=== PATIENT | female | born 1960 | race Caucasian/White ===

== ENCOUNTER → 2019-03-02 10:27 | Outpatient (BNVA) | payer MEDICARE, MEDICAID, SELFPAY | PROVIDERS: Family Provider Internal Medicine; PCP Internal Medicine; Visit Provider Nurse Practitioner Psychiatric/Mental Health | DX: F33.2 Major depressive disorder, recurrent severe without psychotic features (principal); F43.12 Post-traumatic stress disorder, chronic; F41.1 Generalized anxiety disorder; G47.33 Obstructive sleep apnea (adult) (pediatric); F17.210 Nicotine dependence, cigarettes, uncomplicated | CPT/HCPCS: 99214 ==

== ENCOUNTER → 2019-03-07 07:45 | Outpatient (BNVA) | payer MEDICARE, MEDICAID, SELFPAY | PROVIDERS: Family Provider Internal Medicine; PCP Internal Medicine; Visit Provider Social Worker | DX: F43.12 Post-traumatic stress disorder, chronic (principal); F33.1 Major depressive disorder, recurrent, moderate; F41.1 Generalized anxiety disorder | CPT/HCPCS: 90834 ==

== ENCOUNTER 2019-04-05 09:53 | Outpatient (CLI) | payer MEDICARE, MEDICAID, SELFPAY ==
--- NOTE | 2019-04-05 09:56 | MM_ITS ---
WS: [id number] BILATERAL SCREENING DIGITAL MAMMOGRAM WITH CAD HISTORY: SCREENING COMPARISON: 02/05/2018, 12/19/2016, 05/26/2012. Bilateral CC and MLO views submitted. Computer aided detection analyzed. Breast composition: There are scattered areas of fibroglandular density. No suspicious masses, microc alcifications or architectural distortion. Long-term stability of a mass measuring 8 mm in the anteri or LEFT breast. There are a few benign scattered calcifications. MM/[place] [id number] IMPRESSION: BI-RADS: 2-Benign FOLLOW UP: 1 Year Follow-up
== END 2019-04-05 09:54 | disposition home or self-care (01) ==
LOC: RADSHAW 09:54
PROVIDERS: Family Provider Internal Medicine; PCP Internal Medicine; Visit Provider Internal Medicine
DX: Z12.31 Encounter for screening mammogram for malignant neoplasm of breast (principal)
CPT/HCPCS: 77067

== ENCOUNTER → 2019-05-06 07:55 | Outpatient (BNVA) | payer MEDICARE, MEDICAID, SELFPAY | PROVIDERS: Family Provider Internal Medicine; PCP Internal Medicine; Visit Provider Nurse Practitioner Psychiatric/Mental Health | DX: F33.2 Major depressive disorder, recurrent severe without psychotic features (principal); F43.12 Post-traumatic stress disorder, chronic; F41.1 Generalized anxiety disorder; G47.33 Obstructive sleep apnea (adult) (pediatric); F17.210 Nicotine dependence, cigarettes, uncomplicated | CPT/HCPCS: 99214 ==

== ENCOUNTER → 2019-05-10 09:01 | Outpatient (BNVA) | payer MEDICARE, MEDICAID, SELFPAY | PROVIDERS: Family Provider Internal Medicine; PCP Internal Medicine; Visit Provider Social Worker | DX: F43.12 Post-traumatic stress disorder, chronic (principal); F41.1 Generalized anxiety disorder; F33.2 Major depressive disorder, recurrent severe without psychotic features | CPT/HCPCS: 90834 ==

== ENCOUNTER → 2019-06-02 07:37 | Outpatient (BNVA) | payer MEDICARE, MEDICAID, SELFPAY | PROVIDERS: Family Provider Internal Medicine; PCP Internal Medicine; Visit Provider Nurse Practitioner Psychiatric/Mental Health | DX: F33.2 Major depressive disorder, recurrent severe without psychotic features (principal); F43.12 Post-traumatic stress disorder, chronic; F41.1 Generalized anxiety disorder; G47.33 Obstructive sleep apnea (adult) (pediatric); F17.210 Nicotine dependence, cigarettes, uncomplicated | CPT/HCPCS: 99214 ==

== ENCOUNTER → 2019-06-09 08:16 | Outpatient (BNVA) | payer MEDICARE, MEDICAID, SELFPAY | PROVIDERS: Family Provider Internal Medicine; PCP Internal Medicine; Visit Provider Social Worker | DX: F33.2 Major depressive disorder, recurrent severe without psychotic features (principal); F43.12 Post-traumatic stress disorder, chronic | CPT/HCPCS: 90834 ==

== ENCOUNTER → 2019-08-05 07:46 | Outpatient (BNVA) | payer MEDICARE, MEDICAID, SELFPAY | PROVIDERS: Family Provider Internal Medicine; PCP Internal Medicine; Visit Provider Nurse Practitioner Psychiatric/Mental Health | DX: F33.2 Major depressive disorder, recurrent severe without psychotic features (principal); F43.12 Post-traumatic stress disorder, chronic; F41.1 Generalized anxiety disorder; F17.210 Nicotine dependence, cigarettes, uncomplicated; G47.33 Obstructive sleep apnea (adult) (pediatric) | CPT/HCPCS: 99214 ==

== ENCOUNTER → 2019-09-09 07:25 | Outpatient (BNVA) | payer MEDICARE, MEDICAID, SELFPAY | PROVIDERS: Family Provider Internal Medicine; PCP Internal Medicine; Visit Provider Nurse Practitioner Psychiatric/Mental Health | DX: F33.2 Major depressive disorder, recurrent severe without psychotic features (principal); F43.12 Post-traumatic stress disorder, chronic; F41.1 Generalized anxiety disorder; G47.33 Obstructive sleep apnea (adult) (pediatric); F17.210 Nicotine dependence, cigarettes, uncomplicated | CPT/HCPCS: 99214 ==

== ENCOUNTER → 2019-09-13 08:45 | Outpatient (BNVA) | payer OTHER, SELFPAY | PROVIDERS: Family Provider Internal Medicine; PCP Internal Medicine; Visit Provider Psychiatry & Neurology Neurology | DX: F33.2 Major depressive disorder, recurrent severe without psychotic features (principal); F43.10 Post-traumatic stress disorder, unspecified; F41.1 Generalized anxiety disorder | CPT/HCPCS: 80061; 83036 ==

== ENCOUNTER 2019-09-22 17:34 | Emergency (ER) | payer MEDICARE, MEDICAID, SELFPAY ==
[2019-09-14 11:43] VITALS: BP 132/85; BMI 25.6
[2019-09-22 17:34] VITALS: BP 151/86; PULSE 81; RESP 16; TEMP 36.8; O2SAT 95; BMI 25.5
--- NOTE | 2019-09-22 17:50 | XRR_ITS ---
PROCEDURE INFORMATION: Exam: XR Chest, 1 View Exam date and time: 09/22/2019 6:30 PM Age: 59 years old Clinical indication: Shortness of breath and other: Vertigo; Patient HX: C/O shortness of breath x 1 day, dizziness, vertigo TECHNIQUE: Imaging protocol: XR of the chest Views: 1 view. COMPARISON: CR Chest 2 views* [id number] 09/01/2017 10:55 PM FINDINGS: Lungs: No consolidation. Pleural space: No pleural effusion. No pneumothorax. Heart/Mediastinum: No cardiomegaly. Bones/joints: No acute fracture. XR/XR chest 1V portable [id number] IMPRESSION: No acute findings.
--- NOTE | 2019-09-22 17:51 | ECG_ITS ---
[facility] Test Date: 2019-09-22 Pat Name: Danielle Galo Department: Room: Gender: Female Income Tax Manager: : 1960 Requested By: Mary Ingram I Order Number: [id number] Veronique MD: Emerald Dale M.D. Measurements Intervals [place] Rate: 76 P: 74 TN: 188 QRS: -9 QRSD: 109 T: 43 QT: 391 QTc: 440 Interpretive Statements SINUS RHYTHM POSSIBLE LEFT ATRIAL ENLARGEMENT [-0.1mV P WAVE IN V1/V2] LOW QRS VOLTAGE IN PRECORDIAL LEADS INCOMPLETE RIGHT BUNDLE BRANCH BLOCK POSSIBLE INFERIOR MYOCARDIAL INFARCTION , PROBABLY OLD Compared to ECG 01/04/2019 15:47:46 Myocardial infarct finding now present Sinus arrhythmia no longer present Electronically Signed On 09-22-2019 20:10:42 CDT by Emerald Dale M.D. [id number]
[2019-09-22 18:00] VITALS: BP 120/71; BP 137/85; BP 147/83; PULSE 76; PULSE 88; PULSE 92
--- NOTE | 2019-09-22 18:00 | W.ED.DIZZY ---
HPI - Dizziness General: Chief Complaint: Dizziness Stated Complaint: DIZZINESS Time Seen by Provider: 09/22/19 17:39 Source: patient and EMS Mode of arrival: EMS History of Present Illness: HPI Narrative: Patient has a history of vertigo but states that today her symptoms feel different than usual. She has severe vertigo with the room spinning worse when she turns her head and has fallen down several times due to the vertigo. She has nausea but no vomiting and feels quite unwell. No fever, no head injury, no recent ear infection. MD elicited complaint: dizziness, vertigo and disequilibrium Pertinent past history: inner ear problems Onset (ago): hour(s) Timing: sudden onset Severity: severe Description: room spinning , off-balance and difficulty walking Context: change in body position and anxiety History of similar symptoms: Yes (But she says it feels different than her usual) Exacerbating factors: movement/ambulation and change in body position Relieving factors: nothing Associated symptoms: Reports malaise and nausea; Denies abnormal vaginal bleeding, change in hearing, chest pain, chills, cough, diaphoresis, ear discharge, ear pressure, fevers/chills, headache(s), nasal congestion, palpitations, rash, short of breath, syncope, tinnitus, vomiting or weakness Associated neuro symptoms: Deny confusion, difficulty speaking, dysphagia, diplopia, extremity weakness, facial numbness, facial weakness, gait changes, numbness in extremities or visual changes Review of Systems General: Reports: 10 or more systems reviewed and unremarkable except in HPI and below Const: Reports: malaise; Denies: chills or diaphoresis Eyes: Denies: change in vision or blurry vision ENMT: Denies: ear discharge, change in hearing, tinnitus or nasal congestion Card: Denies: chest pain, palpitations or syncope Resp: Denies: dyspnea, productive cough or non-productive cough GI: Reports: nausea; Denies: vomiting or dysphagia : Denies: flank pain, difficulty voiding, dysuria, urinary frequency, urinary urgency or urinary hesitancy Musc: Denies: neck pain, back pain or extremity swelling Skin/Breast: Denies: rash, pruritus or erythema Neuro: Reports: vertigo; Denies: headache(s), numbness in extremities or confusion Endo: Denies: polyuria, polydipsia or tired all the time PFS ED PFSH: Medical History (Reviewed 09/22/19 @ 22:29 by Mary Ingram [place], [facility] [place] Chronic post-traumatic stress disorder Generalized anxiety disorder Intervertebral cervical disc disorder with myelopathy, cervical region Major depressive disorder, recurrent severe without psychotic features Nicotine dependence, cigarettes, uncomplicated Obstructive sleep apnea Surgical History (Reviewed 09/22/19 @ 22:29 by Mary Ingram MD, [facility] [place] H/O carpal tunnel repair Open release of the median nerve at the right wrist, reexploration; 11/29/2018; [facility] Status post decompression of ulnar nerve at elbow Open release of the ulnar nerve at the right elbow; 11/29/2018; [facility] Family History (Reviewed 09/22/19 @ 22:29 by Mary Ingram MD, [facility] [place] Other Adopted Unknown family medical history Social History (Reviewed 09/22/19 @ 22:29 by Mary Ingram MD, [facility] [place] Smoking and tobacco status: current every day smoker cigarettes Years cigarettes smoked: 45 Quit status (tobacco): has tried quititng Number of times tried to quit tobacco: 2 Second hand smoke exposure: No Smoking risk assessment/counseling performed?: Yes Alcohol intake: former Year of sobriety/quit date alcohol: 12.2 Desire information about alcohol rehabilitation?: No Counseling given: No Desire information about substance/drug rehabilitation?: No Adopted: Yes Caregiver/support person: No Lives independently: Yes Household members: none Housing: Apartment Marital status: Number of children: 2 Number of grandchildren: 1 Highest education level completed: Associate Degree: Occupational, Technical, Vocational Program Education level details: Licensed practical nurse service: No Current occupational status: disabled Current occupational exposures/hazards: No Pets and animals: No History of recent travel: No Leisure activites: art, music and reading Sexually active: No Current gender identity: Female Cheryl/Adventist: Nondenominational Special cheryl needs: No Agree to transfusion: Yes Financial difficulty paying for basics: Not Very Hard Female Reproductive History: Para: 2 Spontaneous abortions: Yes (single and quadruplets) Physical Exam Const: COMMON NORMALS: no acute distress, average body habitus, patient oriented x3, no limitations, healthy appearing, alert and well nourished HENMT: COMMON NORMALS: normocephalic, atraumatic and moist oral mucous membranes HEAD & SCALP: normocephalic and atraumatic Eye: COMMON NORMALS: Equal, round and reactive pupils present, EOMs intact bilaterally, conjunctivae normal and no scleral icterus CONJUNCTIVA: Yes conjunctivae normal PUPIL: Yes Equal, round and reactive pupils present Neck/C-Spine: COMMON NORMALS: full ROM, supple, no meningeal signs, no JVD and No carotid bruits Resp: COMMON NORMALS: normal respiratory effort, No retractions, No use of accessory muscles, clear to auscultation bilaterally and percussion normal AUSCULTATION: clear to auscultation bilaterally PERCUSSION: percussion normal Cardio: COMMON NORMALS: no JVD, regular rate, regular rhythm, S1 normal heart sound present, S2 normal heart sound present, No gallops present (Cardio), No clicks present (Cardio), No murmurs present (Cardio), No rub (Cardio) and Peripheral pulses 2+ throughout RATE: regular rate RHYTHM: regular rhythm HEART SOUNDS: S1 normal heart sound present and S2 normal heart sound present PERIPHERAL PULSES: Peripheral pulses 2+ throughout GI: COMMON NORMALS: Normal to inspection, nondistended, normoactive bowel sounds present, Soft to palpation, non-tender, No hepatosplenomegaly present, no masses and no bruits PALPATION: Yes Soft to palpation and Yes No hepatosplenomegaly present Extremity: COMMON NORMALS: normal to inspection, full ROM, capillary refill normal, no calf tenderness and no pedal edema Neuro: COMMON NORMALS: patient oriented x3 SENSORIUM/ORIENTATION: Yes alert MENINGEAL SIGNS: Yes no meningeal signs OTHER: No nystagmus observed however the patient was symptomatic when she looked laterally with either eye. Skin: COMMON NORMALS: no rashes or lesions noted, no wounds, turgor normal, no jaundice, no petechiae and no mottling GENERAL SKIN EXAM: no rashes or lesions noted and turgor normal Course Reevaluation(s): Reevaluation #1: Patient feels much better following the Ativan injection and fluids. Symptoms have all but resolved. Discussed her lab and imaging findings with her, other than mild leukocytosis nothing acute. Negative baseline high-sensitivity troponin. Once I get a report of the head CT will discharge her home. She voiced understanding and is in agreement with the plan. Time: 18:57 Reevaluation #2: Discussed her head CT findings with her. Negative for acute findings. She continues to feel good, we will discharge her home with no new orders. She voiced understanding and is in agreement with the plan Time: 19:52 Vital Signs: Vital signs: Vital Signs Temperature 98.3 F 09/22/19 17:34 Pulse Rate 84 09/22/19 20:23 Respiratory Rate 18 09/22/19 20:23 Blood Pressure 136/82 09/22/19 20:23 Pulse Oximetry 97 09/22/19 20:23 MDM - Dizziness Lab Data: Labs: Lab Results 09/22/19 09/22/19 09/22/19 Range/Units 17:14 17:14 17:14 WBC 14.6 H (4.0-10.0) 10^3/ uL RBC 5.08 (4.1-5.3) 10^6/u L Hgb 15.3 (11.5-15.3) g/dL Hct 46.2 (37.0-47.0) % MCV 90.9 (81-99) fL MCH 30.1 (28.0-34.0) pg MCHC 33.1 (30.0-36.0) g/dL RDW 11.9 L (12.1-15.1) % Plt Count 276 (130-400) 10^3/c mm MPV 13.0 H (7.4-10.4) fL Neut % (Auto) 65.2 % Lymph % (Auto) 26.0 % [place] % (Auto) 5.5 % Eos % (Auto) 2.2 % Baso % (Auto) 0.6 % Neut # (Auto) 9.49 H (1.8-7.7) 10^3/u L Lymph # (Auto) 3.8 (0.8-4.8) 10^3/u L [place] # (Auto) 0.8 (0.2-0.9) 10^3/u L Eos # (Auto) 0.3 (0.0-0.8) 10^3/u L Baso # (Auto) 0.1 (0.0-0.1) 10^3/u L Nucleated RBC % (a uto) 0 % Nucleated RBCs # 0.0 /100WBC Sodium 136 (136-145) mmol/L Potassium 3.7 (3.5-5.1) mmol/L Chloride 102 (98-107) mmol/L Carbon Dioxide 24 (22-29) mmol/L Anion Gap 13.7 (5-19) BUN 18 (8-23) mg/dL Creatinine 0.7 (0.5-0.9) mg/dL GFR Calculation 85.1 L (90-130) mL/min Glucose 112 (65-115) mg/dL Calculated Osmolal ity 279 L (285-295) mOsm/k g Calcium 8.9 (8.5-10.5) mg/dL Total Bilirubin 0.3 (0.15-1.2) mg/dL AST 15 (0-32) U/L ALT 16 (0-33) U/L Alkaline Phosphata se 77 (35-105) IU/L Creatine Kinase 59 (26-192) U/L Troponin T Baselin e 6 (0-10) ng/L Troponin T 120 Min [place] (0-10) ng/L Delta Troponin T (0-10) ABS# C-Reactive Protein 3.5 (0.0-4.9) mg/L NT-Pro-B Natriuret Pep 6 (0-125) pg/mL Total Protein 7.3 (6.6-8.7) g/dL Albumin 4.4 (3.5-5.2) g/dL Globulin 2.9 (1.3-4.6) g/dL Urine Color (Yellow) Urine Appearance (CLEAR) Urine pH (5-7) Ur Specific Gravit y (1.005-1.030) Urine Protein (Negative) Urine Glucose (UA) (Normal) Urine Ketones (Negative) Urine Blood (Negative) Urine Nitrate (Negative) Urine Bilirubin (NEGATIVE) Urine Urobilinogen (Negative) mg/dL Ur Leukocyte Natalie ase (Negative) 09/22/19 09/22/19 Range/Units 18:13 19:11 WBC (4.0-10.0) 10^3/ uL RBC (4.1-5.3) 10^6/u L Hgb (11.5-15.3) g/dL Hct (37.0-47.0) % MCV (81-99) fL MCH (28.0-34.0) pg MCHC (30.0-36.0) g/dL RDW (12.1-15.1) % Plt Count (130-400) 10^3/c mm MPV (7.4-10.4) fL Neut % (Auto) % Lymph % (Auto) % [place] % (Auto) % Eos % (Auto) % Baso % (Auto) % Neut # (Auto) (1.8-7.7) 10^3/u L Lymph # (Auto) (0.8-4.8) 10^3/u L [place] # (Auto) (0.2-0.9) 10^3/u L Eos # (Auto) (0.0-0.8) 10^3/u L Baso # (Auto) (0.0-0.1) 10^3/u L Nucleated RBC % (a uto) % Nucleated RBCs # /100WBC Sodium (136-145) mmol/L Potassium (3.5-5.1) mmol/L Chloride (98-107) mmol/L Carbon Dioxide (22-29) mmol/L Anion Gap (5-19) BUN (8-23) mg/dL Creatinine (0.5-0.9) mg/dL GFR Calculation (90-130) mL/min Glucose (65-115) mg/dL Calculated Osmolal ity (285-295) mOsm/k g Calcium (8.5-10.5) mg/dL Total Bilirubin (0.15-1.2) mg/dL AST (0-32) U/L ALT (0-33) U/L Alkaline Phosphata se (35-105) IU/L Creatine Kinase (26-192) U/L Troponin T Baselin e (0-10) ng/L Troponin T 120 Min [place] 6.00 (0-10) ng/L Delta Troponin T 0 (0-10) ABS# C-Reactive Protein (0.0-4.9) mg/L NT-Pro-B Natriuret Pep (0-125) pg/mL Total Protein (6.6-8.7) g/dL Albumin (3.5-5.2) g/dL Globulin (1.3-4.6) g/dL Urine Color Yellow (Yellow) Urine Appearance Clear (CLEAR) Urine pH 6 (5-7) Ur Specific Gravit y 1.010 (1.005-1.030) Urine Protein Neg (Negative) Urine Glucose (UA) Norm (Normal) Urine Ketones Negative (Negative) Urine Blood Neg (Negative) Urine Nitrate Negative (Negative) Urine Bilirubin Neg (NEGATIVE) Urine Urobilinogen Neg (Negative) mg/dL Ur Leukocyte Natalie ase Negative (Negative) Imaging Data^: CT Head: Radiologist's impression: [address] [address] [address] Scan Report Signed Patient: Danielle Galo #: [id number] : 9Acct#:[id number] Age/Sex: 59 / FADM Date: 09/22/19 Loc: ERRoom/Bed: Attending Dr: Ordering Provider/Ordering MD: Mary Ingram MD, [facility] [place] of Service: 09/22/19 Procedure(s): CT head wo con* [id number] Accession Number(s): [id number] Report Number: [id number] PROCEDURE INFORMATION: Exam: CT Head Without Contrast Exam date and time: 09/22/2019 7:14 PM Age: 59 years old Clinical indication: Dizziness; Additional info: Dizziness, ataxia TECHNIQUE: Imaging protocol: Computed tomography of the head without contrast. Radiation optimization: All CT scans at this facility use at least one of these dose optimization techniques: automated exposure control; mA and/or kV adjustment per patient size (includes targeted exams where dose is matched to clinical indication); or iterative reconstruction. COMPARISON: CT head wo con* [id number] 01/04/2019 2:29 PM RADIATION DOSE METRICS: Total DLP (mGy-cm): 773.71 FINDINGS: The ventricles, sulci and basilar cisterns appear normal for the patient's stated age. There is no evidence of mass, hemorrhage or infarct. No extra-axial fluid collections are identified. There is no midline shift. There is no evidence of fracture. The visualized paranasal sinuses are well-aerated. There is atherosclerotic change of the cavernous carotid arteries. CT/CT head wo con* [id number] IMPRESSION: No evidence for acute infarct, mass or hemorrhage. Radiation Dose CTDIVOL = (mGy): DLP = 773.71 (mGy-cm) Dictated By:Diony Cook MD Signed By:Diony Cook MDSigned Date/Time:09/22/191933 DD/ 32 CXR: Attestation: I personally reviewed and interpreted this imaging study as follows: My impression: No consolidation, effusions or other acute findings. EKG Data^: EKG 1: Attestation: I personally reviewed and interpreted this EKG as follows: EKG interpretation date: 09/22/19 EKG interpretation time: 18:08 Prior EKG tracings: not available for review Interpretation: Sinus rhythm. Heart rate 76 bpm. Incomplete right bundle branch block. No ST changes. EKG 2: Attestation: I personally reviewed and interpreted this EKG as follows: EKG interpretation date: 09/22/19 EKG interpretation time: 19:56 Prior EKG tracings: available for review Interpretation: Sinus rhythm. Heart rate 73 bpm. Incomplete right bundle branch block. No ST changes. Unchanged from prior Discharge Plan Discharge Patient Disposition: Home Clinical Impression: Benign paroxysmal positional vertigo Qualifiers: Laterality: bilateral Qualified Code(s): H81.13 - Benign paroxysmal vertigo, bilateral Condition: Stable Prescriptions: Continued topiramate [Topamax] 200 mg tablet 200 mg PO BID RF: 0 atorvastatin [Lipitor] 20 mg tablet 20 mg PO DAILY RF: 0 clopidogrel 75 mg tablet 75 mg PO DAILY RF: 0 meclizine 25 mg tablet 25 mg PO TID PRN (Reason: unknown) RF: 0 lorazepam 0.5 mg tablet 0.25 mg PO BID PRN (Reason: severe anxiety) Qty: 30 RF: 1 Prozac 40 mg capsule 40 mg PO QAM RF: 0 Discharge Orders: Discharge Order (Routine); Ordered 09/22/19 Ordered By: Mary Ingram Referrals: Lux Everett DO [Primary Care Provider] - 1-3 days Discharge Diet: Usual diet Discharge Activity: Increase activity as tolerated Patient Instructions: Benign Paroxysmal Positional Vertigo (ED) Activity Restrictions/Additional Instructions: Return for any new or worsening symptoms. Follow-up with your primary care provider within 3 days. Continue home medications. Discharge Date/Time: 09/22/19 20:23 Coding Level of Care Code ED [facility] Administrator for Chg Ghassan
[2019-09-22 18:07] LABS: Basophils # 0.1 10^3/uL (0.0-0.1); Basophils % 0.6 %; Eosinophils # 0.3 10^3/uL (0.0-0.8); Eosinophils % 2.2 %; Hematocrit 46.2 % (37.0-47.0); Hemoglobin 15.3 g/dL (11.5-15.3); Lymphocytes # 3.8 10^3/uL (0.8-4.8); Mean Corpuscular HGB Conc 33.1 g/dL (30.0-36.0); Mean Corpuscular Hemoglobin 30.1 pg (28.0-34.0); Mean Corpuscular Volume 90.9 fL (81-99); Monocytes # 0.8 10^3/uL (0.2-0.9); Monocytes % 5.5 %; Neutrophils # 9.49 10^3/uL (1.8-7.7); Neutrophils % 65.2 %; Nucleated Red Blood Cells % 0 %; Platelet Count 276 10^3/cmm (130-400); Red Blood Count 5.08 10^6/uL (4.1-5.3); Red Cell Distribution Width 11.9 % (12.1-15.1); White Blood Count 14.6 10^3/uL (4.0-10.0)
[2019-09-22 18:21] LABS: Troponin(5th) Baseline 6 ng/L (0-10)
[2019-09-22] MEDS: LORazepam 2 mg/mL INJ 1 mL 1 MG IVP (18:27)
[2019-09-22] MEDS: sodium chloride 0.9% 1,000 ML 999 ML IV (18:28)
[2019-09-22 18:30] LABS: Alanine Aminotransferase 16 U/L (0-33); Albumin Level 4.4 g/dL (3.5-5.2); Alkaline Phosphatase 77 IU/L (35-105); Anion Gap 13.7 (5-19); Aspartate Amino Transferase 15 U/L (0-32); Blood Urea Nitrogen 18 mg/dL (8-23); C Reactive Protein 3.5 mg/L (0.0-4.9); Calcium 8.9 mg/dL (8.5-10.5); Carbon Dioxide 24 mmol/L (22-29); Chloride 102 mmol/L (98-107); Creatine Phosphokinase 59 U/L (26-192); Globulin 2.9 g/dL (1.3-4.6); Glomerular Filtration Rate 85.1 mL/min (90-130); Glucose 112 mg/dL (65-115); NT Pro B Type Natriuretic Pept 6 pg/mL (0-125); Osmolality Calculated 279 mOsm/kg (285-295); Potassium 3.7 mmol/L (3.5-5.1); Sodium 136 mmol/L (136-145); Total Bilirubin 0.3 mg/dL (0.15-1.2); Total Protein 7.3 g/dL (6.6-8.7)
[2019-09-22 18:31] LABS: Add Urine Microscopic? NO; Urine Appearance Clear (CLEAR); Urine Color Yellow (Yellow)
[2019-09-22 18:32] LABS: Bilirubin Urine Neg (NEGATIVE); Blood Urine Neg (Negative); Glucose Urine UA Norm (Normal); Ketones Urine Negative (Negative); Leukocyte Esterase Urine Negative (Negative); Nitrate Urine Negative (Negative); Protein Urine Neg (Negative); Urobilinogen Urine Neg (Negative); pH Urine 6 (5-7)
--- NOTE | 2019-09-22 18:56 | CTR_ITS ---
PROCEDURE INFORMATION: Exam: CT Head Without Contrast Exam date and time: 09/22/2019 7:14 PM Age: 59 years old Clinical indication: Dizziness; Additional info: Dizziness, ataxia TECHNIQUE: Imaging protocol: Computed tomography of the head without contrast. Radiation optimization: All CT scans at this facility use at least one of these dose optimization techniques: automated exposure control; mA and/or kV adjustment per patient size (includes targeted exams where dose is matched to clinical indication); or iterative reconstruction. COMPARISON: CT head wo con* [id number] 01/04/2019 2:29 PM RADIATION DOSE METRICS: Total DLP (mGy-cm): 773.71 FINDINGS: The ventricles, sulci and basilar cisterns appear normal for the patient's stated age. There is no evidence of mass, hemorrhage or infarct. No extra-axial fluid collections are identified. There is no midline shift. There is no evidence of fracture. The visualized paranasal sinuses are well-aerated. There is atherosclerotic change of the cavernous carotid arteries. CT/CT head wo con* [id number] IMPRESSION: No evidence for acute infarct, mass or hemorrhage. Radiation Dose CTDIVOL = (mGy): DLP = 773.71 (mGy-cm)
--- NOTE | 2019-09-22 19:10 | PC.NURSE ---
REPORT GIVEN TO [facility].
--- NOTE | 2019-09-22 19:36 | PC.NURSE ---
during pt rounds, pt requesting ice chips. request ok by
[2019-09-22 19:45] LABS: Troponin 5 2HR Delta 0 ABS# (0-10)
--- NOTE | 2019-09-22 19:51 | ECG_ITS ---
[facility] Test Date: 2019-09-22 Pat Name: Danielle Galo Department: Room: Gender: Female Lead Software Architect: : 1960 Requested By: Mary Ingram I Order Number: [id number] Veronique MD: Raza Hinkle M.D. Measurements Intervals [place] Rate: 73 P: 72 ME: 198 QRS: 16 QRSD: 108 T: 38 QT: 387 QTc: 428 Interpretive Statements SINUS RHYTHM LOW QRS VOLTAGE IN PRECORDIAL LEADS [QRS DEFLECTION < 1.0 mV IN CHEST LEADS] INCOMPLETE RIGHT BUNDLE BRANCH BLOCK [90+ ms QRS DURATION, TERMINAL R IN V1/V2, 40+ ms S IN I/aVL/V4/V5/V6] Compared to ECG 09/22/2019 18:07:52 Myocardial infarct finding no longer present Electronically Signed On 09-23-2019 13:22:42 CDT by Raza Hinkle M.D. https://[employer].MedAptussouth sunflower county hospitalComSense Technologykettering health behavioral [facility] center.[employer]/store/OM/[id number]
[2019-09-22 20:23] VITALS: BP 136/82; PULSE 84; RESP 18; O2SAT 97
== END 2019-09-22 20:23 | disposition home or self-care (01) ==
PROVIDERS: Emergency Provider Family Medicine; PCP Internal Medicine
DX: H81.13 Benign paroxysmal vertigo, bilateral (principal); Z79.02 Long term (current) use of antithrombotics/antiplatelets; F17.210 Nicotine dependence, cigarettes, uncomplicated
CPT/HCPCS: 12345; 70450; 71045; 80053; 81003; 82550; 83880; 84484; 85025; 86140; 93005; 93010; 96361; 96374; 96375; 99283; 99284; J2060; J7030

== ENCOUNTER → 2019-10-14 07:55 | Outpatient (BNVA) | payer MEDICARE, MEDICAID, SELFPAY ==
[2019-09-14 11:43] VITALS: BP 132/85; BMI 25.6
== END ==
PROVIDERS: PCP Internal Medicine; Visit Provider Nurse Practitioner Psychiatric/Mental Health
DX: F33.2 Major depressive disorder, recurrent severe without psychotic features (principal); F43.12 Post-traumatic stress disorder, chronic; F41.1 Generalized anxiety disorder; G47.33 Obstructive sleep apnea (adult) (pediatric); F17.210 Nicotine dependence, cigarettes, uncomplicated; F90.2 Attention-deficit hyperactivity disorder, combined type
CPT/HCPCS: 99213

== ENCOUNTER → 2019-11-25 07:33 | Outpatient (BNVA) | payer MEDICARE, MEDICAID, SELFPAY ==
[2019-09-14 11:43] VITALS: BP 132/85; BMI 25.6
== END ==
PROVIDERS: PCP Internal Medicine; Visit Provider Nurse Practitioner Psychiatric/Mental Health
DX: F33.2 Major depressive disorder, recurrent severe without psychotic features (principal); F43.12 Post-traumatic stress disorder, chronic; F41.1 Generalized anxiety disorder; F17.210 Nicotine dependence, cigarettes, uncomplicated; G47.33 Obstructive sleep apnea (adult) (pediatric)
CPT/HCPCS: 99214

== ENCOUNTER → 2019-12-30 07:19 | Outpatient (BNVA) | payer MEDICARE, MEDICAID, SELFPAY ==
[2019-09-14 11:43] VITALS: BP 132/85; BMI 25.6
== END ==
PROVIDERS: PCP Internal Medicine; Visit Provider Nurse Practitioner Psychiatric/Mental Health
DX: F33.2 Major depressive disorder, recurrent severe without psychotic features (principal); F43.12 Post-traumatic stress disorder, chronic; F41.1 Generalized anxiety disorder; F17.210 Nicotine dependence, cigarettes, uncomplicated; G47.33 Obstructive sleep apnea (adult) (pediatric)
CPT/HCPCS: 99214

== ENCOUNTER → 2020-03-16 07:25 | Outpatient (BNVA) | payer MEDICARE, MEDICAID, SELFPAY ==
[2019-09-14 11:43] VITALS: BP 132/85; BMI 25.6
== END ==
PROVIDERS: PCP Internal Medicine; Visit Provider Nurse Practitioner Psychiatric/Mental Health
DX: F33.2 Major depressive disorder, recurrent severe without psychotic features (principal); F43.12 Post-traumatic stress disorder, chronic; F41.1 Generalized anxiety disorder; F17.210 Nicotine dependence, cigarettes, uncomplicated; G47.33 Obstructive sleep apnea (adult) (pediatric)
CPT/HCPCS: 99214

== ENCOUNTER → 2020-04-27 07:39 | Outpatient (BNVA) | payer MEDICARE, MEDICAID, SELFPAY ==
[2019-09-14 11:43] VITALS: BP 132/85; BMI 25.6
== END ==
PROVIDERS: PCP Internal Medicine; Visit Provider Nurse Practitioner Psychiatric/Mental Health
DX: F33.2 Major depressive disorder, recurrent severe without psychotic features (principal); F43.12 Post-traumatic stress disorder, chronic; F41.1 Generalized anxiety disorder; F17.210 Nicotine dependence, cigarettes, uncomplicated; G47.33 Obstructive sleep apnea (adult) (pediatric)
CPT/HCPCS: 99214

== ENCOUNTER → 2020-05-25 08:16 | Outpatient (BNVA) | payer MEDICARE, MEDICAID, SELFPAY ==
[2019-09-14 11:43] VITALS: BP 132/85; BMI 25.6
== END ==
PROVIDERS: PCP Internal Medicine; Visit Provider Nurse Practitioner Psychiatric/Mental Health
DX: F33.2 Major depressive disorder, recurrent severe without psychotic features (principal); F43.12 Post-traumatic stress disorder, chronic; F17.210 Nicotine dependence, cigarettes, uncomplicated; F41.1 Generalized anxiety disorder; G47.33 Obstructive sleep apnea (adult) (pediatric)
CPT/HCPCS: 99214

== ENCOUNTER → 2020-06-22 09:36 | Outpatient (BNVA) | payer MEDICARE, MEDICAID, SELFPAY ==
[2019-09-14 11:43] VITALS: BP 132/85; BMI 25.6
== END ==
PROVIDERS: PCP Internal Medicine; Visit Provider Nurse Practitioner Psychiatric/Mental Health
DX: F43.12 Post-traumatic stress disorder, chronic (principal); F41.1 Generalized anxiety disorder; F33.2 Major depressive disorder, recurrent severe without psychotic features; G47.33 Obstructive sleep apnea (adult) (pediatric); F17.210 Nicotine dependence, cigarettes, uncomplicated
CPT/HCPCS: 99214

== ENCOUNTER → 2020-07-20 13:02 | Outpatient (BNVA) | payer MEDICARE, MEDICAID, SELFPAY ==
[2019-09-14 11:43] VITALS: BP 132/85; BMI 25.6
== END ==
PROVIDERS: PCP Internal Medicine; Visit Provider Nurse Practitioner Psychiatric/Mental Health
DX: F33.2 Major depressive disorder, recurrent severe without psychotic features (principal); F43.12 Post-traumatic stress disorder, chronic; F41.1 Generalized anxiety disorder; F17.210 Nicotine dependence, cigarettes, uncomplicated; G47.33 Obstructive sleep apnea (adult) (pediatric)
CPT/HCPCS: 99214

== ENCOUNTER → 2020-08-17 07:36 | Outpatient (BNVA) | payer MEDICARE, MEDICAID, SELFPAY ==
[2019-09-14 11:43] VITALS: BP 132/85; BMI 25.6
== END ==
PROVIDERS: PCP Internal Medicine; Visit Provider Nurse Practitioner Psychiatric/Mental Health
DX: F40.01 Agoraphobia with panic disorder (principal); F33.2 Major depressive disorder, recurrent severe without psychotic features; F43.12 Post-traumatic stress disorder, chronic; F41.1 Generalized anxiety disorder; G47.33 Obstructive sleep apnea (adult) (pediatric); F17.210 Nicotine dependence, cigarettes, uncomplicated
CPT/HCPCS: 99214

== ENCOUNTER → 2020-09-20 07:13 | Outpatient (BNVA) | payer MEDICARE, MEDICAID, SELFPAY ==
[2020-09-11 11:32] VITALS: BP 132/85; BMI 25.6
== END ==
PROVIDERS: PCP Internal Medicine; Visit Provider Nurse Practitioner Psychiatric/Mental Health
DX: F40.01 Agoraphobia with panic disorder (principal); F33.2 Major depressive disorder, recurrent severe without psychotic features; F43.12 Post-traumatic stress disorder, chronic; F17.210 Nicotine dependence, cigarettes, uncomplicated; F41.1 Generalized anxiety disorder; G47.33 Obstructive sleep apnea (adult) (pediatric)
CPT/HCPCS: 99214

== ENCOUNTER → 2020-10-02 07:26 | Outpatient (BNVA) | payer MEDICARE, MEDICAID, SELFPAY ==
[2020-09-11 11:32] VITALS: BP 132/85; BMI 25.6
== END ==
PROVIDERS: PCP Internal Medicine; Visit Provider Nurse Practitioner Psychiatric/Mental Health
DX: F33.2 Major depressive disorder, recurrent severe without psychotic features (principal); F43.12 Post-traumatic stress disorder, chronic; F41.1 Generalized anxiety disorder; F17.210 Nicotine dependence, cigarettes, uncomplicated; F40.01 Agoraphobia with panic disorder; G47.09 Other insomnia
CPT/HCPCS: 99214

== ENCOUNTER → 2020-10-16 07:17 | Outpatient (BNVA) | payer MEDICARE, MEDICAID, SELFPAY ==
[2020-09-11 11:32] VITALS: BP 132/85; BMI 25.6
== END ==
PROVIDERS: PCP Internal Medicine; Visit Provider Nurse Practitioner Psychiatric/Mental Health
DX: F40.01 Agoraphobia with panic disorder (principal); F33.2 Major depressive disorder, recurrent severe without psychotic features; F43.12 Post-traumatic stress disorder, chronic; F17.210 Nicotine dependence, cigarettes, uncomplicated; F41.1 Generalized anxiety disorder; G47.09 Other insomnia
CPT/HCPCS: 99214

== ENCOUNTER → 2020-11-13 07:46 | Outpatient (BNVA) | payer MEDICARE, MEDICAID, SELFPAY ==
[2020-09-11 11:32] VITALS: BP 132/85; BMI 25.6
== END ==
PROVIDERS: PCP Internal Medicine; Visit Provider Nurse Practitioner Psychiatric/Mental Health
DX: F33.2 Major depressive disorder, recurrent severe without psychotic features (principal); F40.01 Agoraphobia with panic disorder; F17.210 Nicotine dependence, cigarettes, uncomplicated; F43.12 Post-traumatic stress disorder, chronic; F41.1 Generalized anxiety disorder; G47.09 Other insomnia
CPT/HCPCS: 99214

== ENCOUNTER → 2020-12-18 08:21 | Outpatient (BNVA) | payer MEDICARE, MEDICAID, SELFPAY ==
[2020-09-11 11:32] VITALS: BP 132/85; BMI 25.6
== END ==
PROVIDERS: PCP Internal Medicine; Visit Provider Nurse Practitioner Psychiatric/Mental Health
DX: F33.2 Major depressive disorder, recurrent severe without psychotic features (principal); F40.01 Agoraphobia with panic disorder; F43.12 Post-traumatic stress disorder, chronic; F17.210 Nicotine dependence, cigarettes, uncomplicated; F41.1 Generalized anxiety disorder; G47.09 Other insomnia
CPT/HCPCS: 99214

== ENCOUNTER → 2021-01-15 08:35 | Outpatient (BNVA) | payer MEDICARE, MEDICAID, SELFPAY ==
[2020-09-11 11:32] VITALS: BP 132/85; BMI 25.6
== END ==
PROVIDERS: PCP Internal Medicine; Visit Provider Nurse Practitioner Psychiatric/Mental Health
DX: F33.2 Major depressive disorder, recurrent severe without psychotic features (principal); F40.01 Agoraphobia with panic disorder; F17.210 Nicotine dependence, cigarettes, uncomplicated; F43.12 Post-traumatic stress disorder, chronic; F41.1 Generalized anxiety disorder; G47.09 Other insomnia
CPT/HCPCS: 99214

== ENCOUNTER → 2021-02-20 07:41 | Outpatient (BNVA) | payer MEDICARE, MEDICAID, SELFPAY ==
[2020-09-11 11:32] VITALS: BP 132/85; BMI 25.6
== END ==
PROVIDERS: PCP Internal Medicine; Visit Provider Nurse Practitioner Psychiatric/Mental Health
DX: F33.2 Major depressive disorder, recurrent severe without psychotic features (principal); F40.01 Agoraphobia with panic disorder; F17.210 Nicotine dependence, cigarettes, uncomplicated; F43.12 Post-traumatic stress disorder, chronic; F41.1 Generalized anxiety disorder; G47.09 Other insomnia
CPT/HCPCS: 99214

== ENCOUNTER → 2021-04-03 07:18 | Outpatient (BNVA) | payer MEDICARE, MEDICAID, SELFPAY ==
[2020-09-11 11:32] VITALS: BP 132/85; BMI 25.6
== END ==
PROVIDERS: PCP Internal Medicine; Visit Provider Nurse Practitioner Psychiatric/Mental Health
DX: F33.2 Major depressive disorder, recurrent severe without psychotic features (principal); F40.01 Agoraphobia with panic disorder; G47.09 Other insomnia; F17.210 Nicotine dependence, cigarettes, uncomplicated; F41.1 Generalized anxiety disorder; F43.12 Post-traumatic stress disorder, chronic
CPT/HCPCS: 99214

== ENCOUNTER → 2021-05-02 07:37 | Outpatient (BNVA) | payer MEDICARE, MEDICAID, SELFPAY ==
[2020-09-11 11:32] VITALS: BP 132/85; BMI 25.6
== END ==
PROVIDERS: PCP Internal Medicine; Visit Provider Nurse Practitioner Psychiatric/Mental Health
DX: F33.2 Major depressive disorder, recurrent severe without psychotic features (principal); G47.09 Other insomnia; F40.01 Agoraphobia with panic disorder; F43.12 Post-traumatic stress disorder, chronic; F41.1 Generalized anxiety disorder; F17.210 Nicotine dependence, cigarettes, uncomplicated
CPT/HCPCS: 99214

== ENCOUNTER → 2021-06-19 07:10 | Outpatient (BNVA) | payer MEDICARE, MEDICAID, SELFPAY ==
[2020-09-11 11:32] VITALS: BP 132/85; BMI 25.6
== END ==
PROVIDERS: PCP Internal Medicine; Visit Provider Nurse Practitioner Psychiatric/Mental Health
DX: F33.2 Major depressive disorder, recurrent severe without psychotic features (principal); F40.01 Agoraphobia with panic disorder; F43.12 Post-traumatic stress disorder, chronic; F41.1 Generalized anxiety disorder; G47.09 Other insomnia; F17.210 Nicotine dependence, cigarettes, uncomplicated
CPT/HCPCS: 99214

== ENCOUNTER → 2022-06-23 09:09 | Outpatient (BNVA) | payer OTHER, SELFPAY ==
[2020-09-11 11:32] VITALS: BP 132/85; BMI 25.6
== END ==
PROVIDERS: PCP Internal Medicine; Visit Provider Nurse Practitioner Psychiatric/Mental Health
DX: Z79.899 Other long term (current) drug therapy (principal)
CPT/HCPCS: 80053; 80061; 83036

== ENCOUNTER → 2023-07-16 08:35 | Outpatient (BNVA) | payer MEDICARE, OTHER, SELFPAY ==
[2020-09-11 11:32] VITALS: BP 132/85; BMI 25.6
== END ==
PROVIDERS: PCP Internal Medicine; Visit Provider Nurse Practitioner Psychiatric/Mental Health
DX: Z79.899 Other long term (current) drug therapy (principal)
CPT/HCPCS: 80053; 80061; 83036

== ENCOUNTER 2024-03-28 08:10 | Outpatient (CLI) | payer MEDICARE, MEDICAID, SELFPAY ==
[2020-09-11 11:32] VITALS: BP 132/85; BMI 25.6
--- NOTE | 2024-03-28 08:20 | MM_ITS ---
WS: [id number] VIEWS: MLO and CC views both breasts. 3D digital tomosynthesis is also included in this exam. Comparison made with prior exam of 12/19/2016, 02/05/2018, 04/05/2019, 05/09/2010, 05/15/2011, 05/26/2012,. Findings: There are scattered areas of fibroglandular density. FINDINGS no sign of suspicious mass, tumor calcification or architectural distortion. Stable appearing nodular densities in the LEFT breast. MM/MM scr BI tomosynthesis [id number] Impression: BI-RADS: 2 - Benign. FOLLOW-UP: 1 Year Follow-up This mammogram was also analyzed by the Computer Aided Detection System R2 Imag e Sheriff Deputy.
--- NOTE | 2024-03-28 08:39 | CT_ITS ---
WS: [id number] LDCT LUNG CANCER SCREENING TECHNIQUE: Noncontrast CT of the chest with coronal and sagittal reformatted images. CLINICAL INFORMATION: NICOTINE DEPENDENCE. CIGARETTES COMPARISON: None. DLP: 83.29 mGy.cm DIvol: Mean CTDIvol: 2.00 (mGy) All CT scans at [facility] use at least one of these dose optimization techniques: automated exposure control; mA and/or kV adjustment per patient size (includes targeted exams where dose is matched to clinical indication); or iterative reconstruction. FINDINGS: Subpleural nodule superior segment LEFT lower lobe measuring 5 mm. 3 mm noncalcified nodule RIGHT upper lobe. Slightly spiculated ovoid nodule LEFT lung apex measuring 7 mm. Recommend 6-month follow-up. A few tiny scattered micronodules. Aortic calcification. Coronary calcification. No mediastinal or hilar lymphadenopathy. No axillary lymphadenopathy. Cholecystectomy clips. Adrenal glands are normal. Splenic artery calcification. Tiny esophageal hiatal hernia. CT/CT lung screening [id number] IMPRESSION: Slightly spiculated ovoid nodule LEFT lung apex measuring 7 mm. Recommend 6-mon follow-up. LUNG-RADS: 3-Probably Benign FOLLOW UP: 6 Month LDCT
== END 2024-03-28 08:11 | disposition home or self-care (01) ==
LOC: RAD 08:11
PROVIDERS: PCP Internal Medicine; Visit Provider Physician Assistant
DX: Z12.31 Encounter for screening mammogram for malignant neoplasm of breast (principal); Z12.2 Encounter for screening for malignant neoplasm of respiratory organs; F17.210 Nicotine dependence, cigarettes, uncomplicated; R92.323 Mammographic fibroglandular density, bilateral breasts; N63.20 Unspecified lump in the left breast, unspecified quadrant; R91.8 Other nonspecific abnormal finding of lung field; I70.0 Atherosclerosis of aorta; I25.10 Atherosclerotic heart disease of native coronary artery without angina pectoris; Z90.49 Acquired absence of other specified parts of digestive tract; I70.8 Atherosclerosis of other arteries
CPT/HCPCS: 71271; 77063; 77067

== ENCOUNTER → 2024-04-04 07:59 | Outpatient (BNVA) | payer MEDICARE, MEDICAID, SELFPAY ==
[2020-09-11 11:32] VITALS: BP 132/85; BMI 25.6
== END ==
PROVIDERS: PCP Internal Medicine; Referring Provider Physician Assistant; Visit Provider Student in an Organized Health Care Education/Training Program
DX: R03.0 Elevated blood-pressure reading, without diagnosis of hypertension (principal); Z12.11 Encounter for screening for malignant neoplasm of colon
CPT/HCPCS: 99204

== ENCOUNTER 2024-06-07 05:56 | Day surgery (SDC) | payer MEDICARE, MEDICAID, SELFPAY ==
[2020-09-11 11:32] VITALS: BP 132/85; BMI 25.6
[2024-06-07 06:15] VITALS: BP 161/82; PULSE 80; RESP 16; TEMP 36.8; O2SAT 93; BMI 29.0
[2024-06-07] MEDS: sodium chloride 0.9% 1,000 ML 15 ML IV (06:43)
--- NOTE | 2024-06-07 06:53 | ANES.PREANE2 ---
Pre-Anesthetic Assessment Height/Weight: Height 1.63 m Weight 76.657 kg Temp Pulse Resp BP Pulse Ox O2 Del Method 98.3 F 80 16 161/82 93 Room Air 06/07/24 06:15 06/07/24 06:15 06/07/24 06:15 06/07/24 06:15 06/07/24 06:15 06/07/24 06:15 Preop Diagnosis: screening Operation Date: 06/07/24 07:00 Proposed Procedures p Colonoscopy 18167 G0121 Z12.11(Not Applicable) - Parveen Sue MD Familial anesthetic complications: none Was Beta Sampson taken within 24 hours: Yes Was Clonidine taken within 24 hours: N/A Last intake: Intake Last Liquid Date 06/06/24 Last Liquid Time 23:50 Last Solid Date 06/05/24 Last Solid Time 19:30 Social Tobacco (8-10 per day x 50 years) and No alcohol Exam alert, oriented x 3 and clear to auscultation bilaterally Airway Mallampati: Class II Comments: Comments: missing front left upper, front right upper is loose, front lowers are loose. History/ROS No significant history except as noted Pulmonary Sleep Apnea CV/HEM Hypertension None reported Hepatic None reported GI Gastroesophageal Reflux Disease (rare, related to diet) Metabolic None reported Musc/skel chronic neck pain Neuropsych None reported Anesthetic Plan ASA status: 2 Anesthesia: Anesthesia Evaluation and MAC Risk of > 500 ml blood loss (7ml/kg in children): No Medications/Allergies Home Medications ?Medication ?Instructions ?Recorded ?Confirmed ?Last Taken ?Type meclizine 25 mg tablet 25 mg PO TID PRN Dizziness 03/02/19 06/07/24 06/06/24 History topiramate 200 mg tablet (Topamax) 200 mg PO BID 03/02/19 06/07/24 06/06/24 History cholecalciferol (vitamin D3) 10 10 mcg PO DAILY 06/18/21 06/07/24 06/06/24 History mcg (400 unit) capsule multivitamin 1 tab PO DAILY 06/18/21 06/07/24 06/06/24 History omega-3 fatty acids 1,000 mg 1,000 mg PO DAILY 06/18/21 06/07/24 06/06/24 History capsule vitamin E 200 unit capsule 200 unit PO DAILY 06/18/21 06/07/24 06/06/24 History fluoxetine 10 mg capsule (Prozac) 10 mg PO .morning #90 caps 02/16/24 06/07/24 06/06/24 Rx fluoxetine 20 mg capsule (Prozac) 20 mg PO .morning #90 caps 04/12/24 06/07/24 06/06/24 Rx hydroxyzine HCl 25 mg tablet 25 mg PO TID PRN anxiety #270 tabs 04/12/24 06/07/24 06/06/24 Rx propranolol 10 mg tablet 10 mg PO .noon #90 tabs 04/12/24 06/07/24 06/06/24 Rx atorvastatin 40 mg tablet 40 mg PO BEDTIME 04/14/24 06/07/24 06/06/24 History quetiapine 25 mg tablet (Seroquel) 25 mg PO BEDTIME PRN anxiety/sleep 06/01/24 06/07/24 06/06/24 History Allergies Allergy/AdvReac Type Severity Reaction Status Date / Time adhesive tape Allergy Severe Rash, Verified 06/07/24 06:09 Itching, Redness aspirin Allergy Severe Hives Verified 06/07/24 06:09 ceftriaxone (From Rocephin) Allergy Severe Hives, Verified 06/07/24 06:09 Trouble breathing clonazepam Allergy Severe Hives, Verified 06/07/24 06:09 Itching eszopiclone (From Lunesta) Allergy Severe ALGY-Rash Verified 06/07/24 06:09 hydrocodone (From Vicodin) Allergy Severe Hives Verified 06/07/24 06:09 bodywide insect venom Allergy Severe Swelling, Verified 06/07/24 06:09 SOB Hives meperidine (From Demerol) Allergy Severe Hives, Verified 06/07/24 06:09 Hallucinations morphine Allergy Severe Hives, Verified 06/07/24 06:09 Hallucinations oxycodone (Percodan) Allergy Severe Hives Verified 06/07/24 06:09 verapamil Allergy Severe Hives, Verified 06/07/24 06:09 Resp problems codeine Allergy Intermediate Codiene, Verified 06/07/24 06:09 Headaches cranberry Allergy Intermediate Hives Verified 06/07/24 06:09 dicyclomine (From Bentyl) Allergy Intermediate Hives, Verified 06/07/24 06:09 Slurred speech divalproex sodium (From Allergy Intermediate Hives Verified 06/07/24 06:09 Depakote) gabapentin (From Neurontin) Allergy Intermediate Hives, Verified 06/07/24 06:09 Welts guaifenesin (From Mucinex D) Allergy Intermediate Hives Verified 06/07/24 06:09 magnesium Allergy Intermediate hives Verified 06/07/24 06:09 pseudoephedrine (From Allergy Intermediate Hives Verified 06/07/24 06:09 Mucinex D) melatonin AdvReac Mild rash, Verified 06/07/24 06:09 pruritus Current Medications Generic Name Dose Route Start Last Admin Trade Name Freq PRN Reason Stop Dose Admin Sodium Chloride 1,000 mls @ 15 mls/hr 06/07/24 06:01 06/07/24 06:43 Sodium Chloride 0.9% IV 06/08/24 06:00 15 mls/hr .Q24H PRN Administration COLONOSCOPY FLUIDS PFSH Anesthesia Medical History (Updated 04/04/24 @ 08:[address]) Psychiatric care Insomnia Psychiatric care Panic disorder with agoraphobia and severe panic attacks Nicotine dependence, cigarettes, uncomplicated Obstructive sleep apnea Generalized anxiety disorder Chronic post-traumatic stress disorder Major depressive disorder, recurrent severe without psychotic features Intervertebral cervical disc disorder with myelopathy, cervical region Surgical History (Updated 04/04/24 @ 08:[address]) H/O carpal tunnel repair Open release of the median nerve at the right wrist, reexploration; 11/29/2018; [facility] Status post decompression of ulnar nerve at elbow Open release of the ulnar nerve at the right elbow; 11/29/2018; [facility] Family History Other Adopted Unknown family medical history Social History Smoking and tobacco/nicotine status: current every day tobacco/nicotine user cigarettes Years cigarettes smoked: 45 Quit status (tobacco/nicotine): has tried quititng Number of times tried to quit tobacco: 2 Second hand smoke exposure: No Alcohol intake: former Year of sobriety/quit date alcohol: 12.2 Substance/Drug Use: never Adopted: Yes Caregiver/support person: No Lives independently: Yes Household members: none Housing: Apartment Marital status: Number of children: 2 Number of grandchildren: 1 Highest education level completed: Associate Degree: Occupational, Technical, Vocational Program Education level details: Licensed practical nurse service: No Current occupational status: disabled Current occupational exposures/hazards: No Pets and animals: No Leisure activites: art, music and reading Sexually active: No Do you think of yourself as: Straight/Heterosexual Current gender identity: Female Cheryl/Jewish: Congregational Special cheryl needs: No Agree to transfusion: Yes Female Reproductive History Para: 2 Spontaneous abortions: Yes (single and quadruplets) Data Anesthesia Cardiac Studies: No Data to Display
--- NOTE | 2024-06-07 07:07 | W.PM.OPSFHP ---
Same Day Surgery H&P Indication for Procedure/HPI DATE OF PROCEDURE: June 07, 2024 CHIEF COMPLAINT/INDICATIONFOR SURGICAL PROCEDURE: screening colonoscopy PREOP DIAGNOSIS: screening PLANNED PROCEDURE: Operation Date: 06/07/24 07:00 Proposed Procedures p Colonoscopy [id number] G0121 Z12.11(Not Applicable) - Parveen Sue MD Medications/Allergies* Home Medications ?Medication ?Instructions ?Recorded ?Confirmed ?Type meclizine 25 mg tablet 25 mg PO TID PRN Dizziness 03/02/19 06/07/24 History topiramate 200 mg tablet (Topamax) 200 mg PO BID 03/02/19 06/07/24 History cholecalciferol (vitamin D3) 10 10 mcg PO DAILY 06/18/21 06/07/24 History mcg (400 unit) capsule multivitamin 1 tab PO DAILY 06/18/21 06/07/24 History omega-3 fatty acids 1,000 mg 1,000 mg PO DAILY 06/18/21 06/07/24 History capsule vitamin E 200 unit capsule 200 unit PO DAILY 06/18/21 06/07/24 History atorvastatin 40 mg tablet 40 mg PO BEDTIME 04/14/24 06/07/24 History quetiapine 25 mg tablet (Seroquel) 25 mg PO BEDTIME PRN anxiety/sleep 06/01/24 06/07/24 History Allergies/Adverse Reactions Allergy/AdvReac Type Severity Reaction Status Date / Time adhesive tape Allergy Severe Rash, Verified 06/07/24 06:09 Itching, Redness aspirin Allergy Severe Hives Verified 06/07/24 06:09 ceftriaxone (From Rocephin) Allergy Severe Hives, Verified 06/07/24 06:09 Trouble breathing clonazepam Allergy Severe Hives, Verified 06/07/24 06:09 Itching eszopiclone (From Lunesta) Allergy Severe ALGY-Rash Verified 06/07/24 06:09 hydrocodone (From Vicodin) Allergy Severe Hives Verified 06/07/24 06:09 bodywide insect venom Allergy Severe Swelling, Verified 06/07/24 06:09 SOB Hives meperidine (From Demerol) Allergy Severe Hives, Verified 06/07/24 06:09 Hallucinations morphine Allergy Severe Hives, Verified 06/07/24 06:09 Hallucinations oxycodone (Percodan) Allergy Severe Hives Verified 06/07/24 06:09 verapamil Allergy Severe Hives, Verified 06/07/24 06:09 Resp problems codeine Allergy Intermediate Codiene, Verified 06/07/24 06:09 Headaches cranberry Allergy Intermediate Hives Verified 06/07/24 06:09 dicyclomine (From Bentyl) Allergy Intermediate Hives, Verified 06/07/24 06:09 Slurred speech divalproex sodium (From Allergy Intermediate Hives Verified 06/07/24 06:09 Depakote) gabapentin (From Neurontin) Allergy Intermediate Hives, Verified 06/07/24 06:09 Welts guaifenesin (From Mucinex D) Allergy Intermediate Hives Verified 06/07/24 06:09 magnesium Allergy Intermediate hives Verified 06/07/24 06:09 pseudoephedrine (From Allergy Intermediate Hives Verified 06/07/24 06:09 Mucinex D) melatonin AdvReac Mild rash, Verified 06/07/24 06:09 pruritus Current Medications: Generic Name Dose Route Start Last Admin Trade Name Freq PRN Reason Stop Dose Admin Sodium Chloride 1,000 mls @ 15 mls/hr 06/07/24 06:01 06/07/24 06:43 Sodium Chloride 0.9% IV 06/08/24 06:00 15 mls/hr .Q24H PRN Administration COLONOSCOPY FLUIDS Pertinent History/Comorbid Conditions* Medical History (Updated 11/12/22 @ 15:15 by Berenice Plascencia [facility]) Psychiatric care Insomnia Psychiatric care Panic disorder with agoraphobia and severe panic attacks Nicotine dependence, cigarettes, uncomplicated Obstructive sleep apnea Generalized anxiety disorder Chronic post-traumatic stress disorder Major depressive disorder, recurrent severe without psychotic features Intervertebral cervical disc disorder with myelopathy, cervical region Surgical History (Updated 02/23/19 @ 16:43 by Clay Kennedy MD) H/O carpal tunnel repair Open release of the median nerve at the right wrist, reexploration; 11/29/2018; [facility] Status post decompression of ulnar nerve at elbow Open release of the ulnar nerve at the right elbow; 11/29/2018; [facility] Family History (Updated 02/21/19 @ 10:21 by Goldie Rodriguez LPN) Adopted Unknown family medical history Social History Smoking and tobacco/nicotine status: current every day tobacco/nicotine user cigarettes Years cigarettes smoked: 45 Quit status (tobacco/nicotine): has tried quititng Number of times tried to quit tobacco: 2 Second hand smoke exposure: No Alcohol intake: former Year of sobriety/quit date alcohol: 12.2 Substance/Drug Use: never Adopted: Yes Caregiver/support person: No Lives independently: Yes Household members: none Housing: Apartment Marital status: Number of children: 2 Number of grandchildren: 1 Highest education level completed: Associate Degree: Occupational, Technical, Vocational Program Education level details: Licensed practical nurse service: No Current occupational status: disabled Current occupational exposures/hazards: No Pets and animals: No Leisure activites: art, music and reading Sexually active: No Do you think of yourself as: Straight/Heterosexual Current gender identity: Female Cheryl/Buddhist: Adventism Special cheryl needs: No Agree to transfusion: Yes Pertinent Exam Findings alert, oriented x 3, clear to auscultation bilaterally, regular rate & rhythm and procedure specific exam findings abdomen soft, nt, nd Recommendations Risks and benefits of procedure reviewed Surgery/Procedure today Coding Level of Care Code Acute Code for Vinayak Ferrell
[2024-06-07 07:33] VITALS: BP 140/71; PULSE 76; RESP 16; TEMP 36.2; O2SAT 95
[2024-06-07] MEDS: ondansetron 2 mg/ML SDV 2 mL 4 MG IVP (07:50)
[2024-06-07 07:54] VITALS: BP 126/67; PULSE 71; RESP 16; O2SAT 95
--- NOTE | 2024-06-07 07:54 | PC.NURSE ---
Drinking Sprite Zero and eating crackers. Gave Zofran for nausea
--- NOTE | 2024-06-07 08:15 | ANE.PACU2 ---
Inpatient post-anesthesia follow up: Airway intact: Yes Vital signs: Temperature 97.2 F Pulse Rate 71 Respiratory Rate 16 Blood Pressure 126/67 Pulse Oximetry 95 Oxygen Delivery Me thod Room Air Oxygen Flow Rate Fraction of Inspir ed Oxygen Hydration adequate: Yes Nausea and vomiting: No Pain level: 1 Mental status: Baseline
== END 2024-06-07 08:14 | disposition home or self-care (01) ==
PROVIDERS: PCP Internal Medicine; Visit Provider Student in an Organized Health Care Education/Training Program
PROC: 0DJD8ZZ Inspection of Lower Intestinal Tract, Via Natural or Artificial Opening Endoscopic (ICD-10-PCS; CPT 45378; principal; 2024-06-07 07:00)
DX: Z12.11 Encounter for screening for malignant neoplasm of colon (principal); K57.30 Diverticulosis of large intestine without perforation or abscess without bleeding; I10 Essential (primary) hypertension; F17.210 Nicotine dependence, cigarettes, uncomplicated; Z79.899 Other long term (current) drug therapy; Z88.8 Allergy status to other drugs, medicaments and biological substances; Z88.5 Allergy status to narcotic agent; Z91.09 Other allergy status, other than to drugs and biological substances
CPT/HCPCS: G0121; J2405; J2704; J3490; J7030; J9999

== ENCOUNTER → 2024-07-07 10:07 | Outpatient (BNVA) | payer MEDICARE, MEDICAID, SELFPAY ==
[2020-09-11 11:32] VITALS: BP 132/85; BMI 25.6
== END ==
PROVIDERS: PCP Internal Medicine; Visit Provider Student in an Organized Health Care Education/Training Program
DX: Z09 Encounter for follow-up examination after completed treatment for conditions other than malignant neoplasm (principal)
CPT/HCPCS: 99213

== ENCOUNTER → 2024-07-21 11:37 | Outpatient (BNVA) | payer OTHER, SELFPAY ==
[2020-09-11 11:32] VITALS: BP 132/85; BMI 25.6
== END ==
PROVIDERS: PCP Internal Medicine; Visit Provider Nurse Practitioner Psychiatric/Mental Health
DX: Z79.899 Other long term (current) drug therapy (principal)
CPT/HCPCS: 80053; 80061; 83036

== ENCOUNTER 2024-11-14 06:46 | Outpatient (CLI) | payer MEDICARE, MEDICAID, SELFPAY ==
[2020-09-11 11:32] VITALS: BP 132/85; BMI 25.6
--- NOTE | 2024-11-14 06:58 | CT_ITS ---
WS: [id number] CT chest w con* [id number] HISTORY: SOLITARY PULMONARY NODULE TECHNIQUE: Axial imaging performed through the thorax. Coronal and sagittal reformats are submitted. All CT scans at [facility] use at least one of these dose optimization techniques: automated exposure control; mA and/or kV adjustment per patient size (includes targeted exams where dose is matched to clinical indication); or iterative reconstruction. CONTRAST: Omnipaque 350; 100 mL IV. DLP: 502.66 mGy.cm COMPARISON: 03/28/2024, 09/01/2017 Lungs and central airway: Reidentified is a 6 mm well-circumscribed partially calcified nodule at the LEFT apex with pleural tag. This nodule is stable since 09/01/2017. Subpleural nodule superior segment LEFT lower lobe at 4.3 mm is unchanged. 3 mm nodule RIGHT upper lobe is unchanged. Pleura: Normal. No pleural effusion. Heart and pericardium: Normal size heart with no pericardial effusion. Mediastinum and lali: Minimally prominent lymphoid tissue at the hilar regions. Indeterminate nodule RIGHT suprahilar region and 11 mm. No pathologically enlarged lymph nodes. Vessels: Mild atherosclerosis aorta. No aneurysm. Normal size pulmonary artery. Chest wall and lower neck: No soft tissue masses. Upper abdomen: No adrenal mass. Prior cholecystectomy. Small hiatal hernia. Atherosclerotic plaque within the descending and suprarenal aorta. Calcified plaque extends into the proximal SMA and celiac axis with mild stenosis. No adrenal mass. Osseous structures: No destructive process. CT/CT chest w con* [id number] IMPRESSION: 1. Stable 6 mm nodule LEFT apex since 09/01/2017. 2. The smaller nodules in the RIGHT upper and LEFT lower lobes are stable sinc e 03/28/2024. 3. Recommend return to annual low-dose lung screening CT. 4. Prior cholecystectomy. 5. Aortic calcification.
[2024-11-14 07:27] LABS: Blood Urea Nitrogen 19 mg/dL (8-23)
[2024-11-14] MEDS: iohexol 350 mg/mL 500 mL Btl (per mL) IV (07:47)
== END 2024-11-14 06:47 | disposition home or self-care (01) ==
LOC: RAD 06:50
PROVIDERS: Radiology Diagnostic Radiology; PCP Internal Medicine; Visit Provider Physician Assistant
DX: R91.8 Other nonspecific abnormal finding of lung field (principal); Z90.49 Acquired absence of other specified parts of digestive tract; I70.0 Atherosclerosis of aorta
CPT/HCPCS: 71260; 82565; 84520